=== PATIENT | female | born 1960 | race Caucasian/White ===

== ENCOUNTER → 2016-09-02 | Outpatient (CLI) | payer BC ==
[~2016-09-02] MED LIST: ACYC200C PO; LIOT5TAB6 PO; METH4TAB27 PO
[2016-09-02 09:13] LABS: BASOPHILS % (AUTO) 0 % (0-2); EOSINOPHILS # (AUTO) 0.1 10^3uL; EOSINOPHILS % (AUTO) 1 % (0-4); MEAN CORPUSCULAR HEMOGLOBIN 31.5 PG (26.0-34.0); MEAN CORPUSCULAR HGB CONC 35.1 g/dL (31.0-37.0); MEAN CORPUSCULAR VOLUME 90 FL (80-100); MEAN PLATELET VOLUME 10.7 FL (6.0-9.5); MONOCYTES # (AUTO) 0.5 X10^3; MONOCYTES % (AUTO) 7 % (3-11); NEUTROPHILS # (AUTO) 5.6 X10^3; NEUTROPHILS % (AUTO) 69 % (51-67); PLATELET COUNT 172 10^3uL (150-450); WHITE BLOOD COUNT 8.22 10^3uL (4.0-11.0)
[2016-09-02 09:43] LABS: ALBUMIN 4.3 g/dL (3.4-5.0); ALKALINE PHOSPHATASE 54 U/L (38-126); BUN/CREATININE RATIO 16 (10-20); CALCULATED IONIZED CALCIUM 4.5 mg/dL (3.8-4.6); TOTAL PROTEIN 7.1 g/dL (6.4-8.5)
--- NOTE | 2016-09-02 09:47 | Diagnostic Imaging Report ---
INDICATION: Encounter for a general adult medical examination without abnormal findings. COMPARISON: September 01, 2015. TECHNIQUE: Frontal and lateral radiographs of the chest dated September 02, 2016. FINDINGS: The cardiac silhouette is within normal limits. No significant pulmonary vascular congestion. The lungs are again noted to be hyperinflated. The lungs are clear without focal pulmonary opacity. No pleural effusion. No pneumothorax. Surgical clips are present within the upper abdomen. No acute osseous abnormality. IMPRESSION: Stable examination demonstrating pulmonary hyperinflation, which can relate to underlying chronic obstructive pulmonary disease. No superimposed acute cardiopulmonary abnormality. Dictated by: Dictated on workstation # [id number]
== END ==
LOC: LAB 09:03
PROVIDERS: ATTEND Family Medicine
DX: Z00.00 Encounter for general adult medical examination without abnormal findings (principal); M81.0 Age-related osteoporosis without current pathological fracture
CPT/HCPCS: 36415; 71020; 80053; 80061; 82306; 84436; 84439; 84443; 84481; 85025; 93005

== ENCOUNTER → 2016-11-26 | Outpatient (CLI) | payer BC | LOC: LAB 07:22 | PROVIDERS: ATTEND Family Medicine | DX: E03.4 Atrophy of thyroid (acquired) (principal) | CPT/HCPCS: 36415; 84436; 84439; 84443; 84481 ==